=== PATIENT | female | born 1985 | race Two or more races ===

== ENCOUNTER → 2019-11-06 | Emergency (ER) | payer MEDICAID ==
[~2019-11-06] VITALS: Ht 157.5 cm; Wt 68.0 kg
[~2019-11-06] MED LIST: CEPHALEXIN500 MG ORAL; Morphine Sulfate 4mg/ml Inj (IV USE ONLY) IVP ONE; NO HOME MEDS; Piperacillin/Tazobactam 3.375 GM in NS 110 ML IVPB ONE
--- NOTE | 2019-11-06 08:15 | NUR ---
ED Nurse Note: Pt ambulated to ED d/t RT flank pain that started yesterday and got worsen last night. 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 VSS, on RA, afebrile on triage. will continue to monitor.
[2019-11-06 08:23] VITALS: BP 112/76
--- NOTE | 2019-11-06 08:23 | NUR ---
ED Nurse Note: ERMD at bedside.
--- NOTE | 2019-11-06 08:26 | Emergency Room Report ---
History of Present Illness General Chief Complaint: General Complaint Source: Patient Present Illness HPI Patient is a 34-year-old female presents after increased right-sided flank pain. 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 Did state she is currently on her menses. Denies any vomiting or diarrhea. Reports having sudden onset of pain. She states she took [place] which she had left over from surgery. Denies any worsening of pain with ambulation or eating. Allergies: Coded Allergies: No Known Allergies (Unverified , 11/06/19) COVID-19 Screening Contact w/high risk pt: No Experienced COVID-19 symptoms?: No COVID-19 Testing performed NETWORK CABLER: No Patient History Past Medical History: see triage record Last Menstrual Period: 11/06/2019 Now: No Reviewed Nursing Documentation: PMH: Agreed; PSxH: Agreed Nursing Documentation-PMH Past Medical History: No History, Except For Review of Systems All Other Systems: negative except mentioned in HPI Physical Exam Vital Signs Date Time Temp Pulse Resp B/P (MAP) Pulse Ox O2 Delivery O2 Flow Rate FiO2 11/06/19 08:08 98.2 72 15 112/76 (88) 98 Room Air Sp02 EP Interpretation: reviewed, normal General Appearance: normal inspection, well appearing, no apparent distress, alert, GCS 15 Head: atraumatic ENT: normal ENT inspection, hearing grossly normal, normal voice Neck: normal inspection, full range of motion, supple, no bony tend Respiratory: normal inspection, lungs clear, normal breath sounds, no respiratory distress, no retraction, no wheezing Cardiovascular #1: regular rate, rhythm, no edema Gastrointestinal: normal inspection, normal bowel sounds, non tender, soft, no guarding, no hernia Genitourinary: CVA tenderness (R) Musculoskeletal: normal inspection, back normal, normal range of motion Neurologic: alert, motor strength/tone normal, data entry associate III-XII nml as tested, oriented x3, responsive, speech normal, normal inspection Psychiatric: normal inspection, judgement/insight normal, mood/affect normal Skin: no rash Medical Decision Making Diagnostic Impression: Primary Impression: Abnormal liver function tests Additional Impressions: Gallstones Hyperbilirubinemia ER Course Patient presented for right-sided flank pain. Differential diagnosis include was not limited to kidney stone, gastroenteritis, cholecystitis among others. Because of complexity of patient's case laboratory tests and imaging studies were ordered.Laboratory testing showed elevation of the liver function tests and hyperbilirubinemia consistent with possible common duct stone. CT imaging showed postsurgical changes without evident intrahepatic duct dilation. Abdominal ultrasound showed questionable cystic duct stone. See radiology report for full details. Patient was advised to risk benefits and alternatives of leaving the hospital AGAINST MEDICAL ADVICE. She indicated understanding and acknowledges leaving the hospital AGAINST MEDICAL ADVICE. All questions were answered. Patient was advised to return at any time. This medical record is generated with [employer] single pointed operator software. There may be some single pointed operator discrepancies related to use of this software Labs Test 11/06/19 08:32 White Blood Count 5.3 K/UL (4.8-10.8) Red Blood Count 4.76 M/UL (4.20-5.40) Hemoglobin 12.5 G/DL (12.0-16.0) Hematocrit 39.3 % (37.0-47.0) Mean Corpuscular Volume 83 FL (80-99) Mean Corpuscular Hemoglobin 26.2 PG (27.0-31.0) Mean Corpuscular Hemoglobin Concent 31.7 G/DL (32.0-36.0) Red Cell Distribution Width 13.3 % (11.6-14.8) Platelet Count 245 K/UL (150-450) Mean Platelet Volume 8.0 FL (6.5-10.1) Neutrophils (%) (Auto) 41.6 % (45.0-75.0) Lymphocytes (%) (Auto) 38.8 % (20.0-45.0) Monocytes (%) (Auto) 14.7 % (1.0-10.0) Eosinophils (%) (Auto) 2.4 % (0.0-3.0) Basophils (%) (Auto) 2.4 % (0.0-2.0) Prothrombin Time 10.9 SEC (9.30-11.50) Prothromb Time International Ratio 1.0 (0.9-1.1) Activated Partial Thromboplast Time 27 SEC (23-33) Urine Color Yellow Urine Appearance Slightly cloudy Urine pH 6 (4.5-8.0) Urine Specific [place] 1.020 (1.005-1.035) Urine Protein 1+ (NEGATIVE) Urine Glucose (UA) Negative (NEGATIVE) Urine Ketones Negative (NEGATIVE) Urine Blood 5+ (NEGATIVE) Urine Nitrite Negative (NEGATIVE) Urine Bilirubin Negative (NEGATIVE) Urine Urobilinogen 4 MG/DL (0.0-1.0) Urine Leukocyte Esterase Negative (NEGATIVE) Urine RBC Tntc /HPF (0 - 2) Urine WBC 0-2 /HPF (0 - 2) Urine Squamous Epithelial Cells Moderate /LPF (NONE/OCC) Urine Bacteria Few /HPF (NONE) Urine HCG, Qualitative Negative (NEGATIVE) Sodium Level 136 MMOL/L (136-145) Potassium Level 4.0 MMOL/L (3.5-5.1) Chloride Level 103 MMOL/L (98-107) Carbon Dioxide Level 29 MMOL/L (21-32) Anion Gap 4 mmol/L (5-15) Blood Urea Nitrogen 18 mg/dL (7-18) Creatinine 1.2 MG/DL (0.55-1.30) Estimat Glomerular Filtration Rate 51.1 mL/min (>60) Glucose Level 86 MG/DL (74-106) Calcium Level 8.9 MG/DL (8.5-10.1) Total Bilirubin 1.6 MG/DL (0.2-1.0) Direct Bilirubin 0.4 MG/DL (0.0-0.3) Aspartate Amino Transf (AST/SGOT) 280 U/L (15-37) Alanine Aminotransferase (ALT/SGPT) 186 U/L (12-78) Alkaline Phosphatase 92 U/L (46-116) Total Protein 7.9 G/DL (6.4-8.2) Albumin 3.4 G/DL (3.4-5.0) Globulin 4.5 g/dL Albumin/Globulin Ratio 0.8 (1.0-2.7) Lipase 178 U/L (73-393) Last Vital Signs Date Time Temp Pulse Resp B/P (MAP) Pulse Ox O2 Delivery O2 Flow Rate FiO2 11/06/19 08:08 98.2 72 15 112/76 (88) 98 Room Air Status: improved Disposition: AGAINST MEDICAL ADVICE Condition: Serious Scripts Cephalexin* (KEFLEX*) 500 Mg Capsule 500 MG ORAL EVERY 6 HOURS, #28 CAP Prov: Rafael Sharma MD 11/06/19 Rafael Sharma MD Nov 06, 2019 08:26
[2019-11-06 08:49] LABS: BASOPHILS % (AUTO) 2.4 % (0.0-2.0); EOSINOPHILS % (AUTO) 2.4 % (0.0-3.0); HEMATOCRIT 39.3 % (37.0-47.0); HEMOGLOBIN 12.5 G/DL (12.0-16.0); LYMPHOCYTES % (AUTO) 38.8 % (20.0-45.0); MEAN CORPUSCULAR VOLUME 83 FL (80-99); MONOCYTES % (AUTO) 14.7 % (1.0-10.0); NEUTROPHILS % (AUTO) 41.6 % (45.0-75.0); PLATELET COUNT 245 K/UL (150-450); RED BLOOD COUNT 4.76 M/UL (4.20-5.40); RED CELL DISTRIBUTION WIDTH 13.3 % (11.6-14.8); WHITE BLOOD COUNT 5.3 K/UL (4.8-10.8)
[2019-11-06 08:58] LABS: APPEARANCE,URINE SLIGHTLY CLOUDY; BILIRUBIN, URINE NEGATIVE (NEGATIVE); GLUCOSE, URINE (UA) NEGATIVE (NEGATIVE); KETONES,URINE NEGATIVE (NEGATIVE); LEUKOCYTE ESTERASE ,URINE NEGATIVE (NEGATIVE); NITRITE,URINE NEGATIVE (NEGATIVE); PH,URINE 6 (4.5-8.0); PROTEIN,URINE 1+ (NEGATIVE); UROBILINOGEN,URINE 4 MG/DL (0.0-1.0)
[2019-11-06 09:03] LABS: COLOR,URINE YELLOW
[2019-11-06 09:05] LABS: ANION GAP 4 mmol/L (5-15); BLOOD UREA NITROGEN 18 mg/dL (7-18); CALCIUM 8.9 MG/DL (8.5-10.1); CARBON DIOXIDE 29 MMOL/L (21-32); CHLORIDE 103 MMOL/L (98-107); CREATININE 1.2 MG/DL (0.55-1.30); SODIUM 136 MMOL/L (136-145)
[2019-11-06 09:17] LABS: ALANINE AMINOTRANSFERASE 186 U/L (12-78); ALBUMIN 3.4 G/DL (3.4-5.0); ALBUMIN/GLOBULIN RATIO 0.8 (1.0-2.7); ALKALINE PHOSPHATASE 92 U/L (46-116); ASPARTATE AMINO TRANSFERASE 280 U/L (15-37); BILIRUBIN,TOTAL 1.6 MG/DL (0.2-1.0)
[2019-11-06 09:18] LABS: BILIRUBIN,DIRECT 0.4 MG/DL (0.0-0.3)
--- NOTE | 2019-11-06 09:22 | NUR ---
ED Nurse Note: pt was taken to CT on stable condition.
--- NOTE | 2019-11-06 09:34 | NUR ---
ED Nurse Note: pt returned from CT on stable condition.
--- NOTE | 2019-11-06 10:02 | Diagnostic Imaging Report ---
Indication: Reason For Exam: ABD PAIN Technique: Continuous helical scanning was performed without any contrast material from the diaphragms through the pelvis . Axial, sagittal, and coronal images were generated. Dose: Total Dose Length Product - DLP [address] Dose Index - CTDIvol(s) 6.5 mGy. Automated exposure control was utilized for dose reduction. Comparison: None Findings: Liver is normal. The gallbladder is surgically absent. Spleen is normal. The pancreas is grossly unremarkable. Left kidney is surgically absent. Right kidney is normal. There is no hydronephrosis. No abnormal calcifications. Aorta and inferior vena cava are normal caliber. The appendix is normal. The bowel is normal caliber. Bladder is unremarkable. Uterus is normal. Ovaries are unremarkable there is no pelvic fluid. Osseous structures are normal. Impression: Previous cholecystectomy. Previous left nephrectomy. Otherwise negative. No acute abnormality. The CT scanner at [facility] is accredited by the [employer] and the scans are performed using protocols designed to limit radiation exposure to as low as reasonably achievable to attain images of sufficient resolution adequate for diagnostic evaluation.
--- NOTE | 2019-11-06 11:10 | NUR ---
ED Nurse Note: US tech at bedside.
--- NOTE | 2019-11-06 12:12 | Diagnostic Imaging Report ---
Indication: Dominant pain Technique: US ABD Complete with duplex evaluation. Comparison: None. Findings: Liver is normal. An echogenic focus with shadowing is noted in the region of the gallbladder fossa. Common bile duct is normal in size. Right kidney is unremarkable. Pancreas is normal. Left kidney is absent. Impression: Echogenic focus with shadowing in the region of the gallbladder fossa. Possibilities include a clip from previous cholecystectomy or a calculus within a cystic duct remnant. MRI may be helpful for further evaluation. Previous left nephrectomy. Otherwise negative.
[2019-11-06 12:47] VITALS: BP 114/80
[2019-11-06 14:02] VITALS: BP 116/82
== END | disposition home or self-care (01) ==
LOC: EMR 08:30 → CANBEDREQ 14:03
DX: K80.80 Other cholelithiasis without obstruction (principal); Z90.5 Acquired absence of kidney; E80.6 Other disorders of bilirubin metabolism; R94.5 Abnormal results of liver function studies
CPT/HCPCS: 36415; 74176; 76700; 80053; 81003; 81025; 82248; 83690; 85025; 85610; 85730; 96361; 96365; J2543; J7030; Z7502; 99284